=== PATIENT | female | born 1985 | race Caucasian/White ===

== ENCOUNTER → 2016-11-28 | Outpatient (CLI) | payer OTHER ==
[~2016-11-28] MED LIST: CHOL1TAB42; PRENTAB26 PO
[2016-11-28 12:48] LABS: GTGD 50 Grams
[2016-11-29 12:18] LABS: AFP CONCENTRATION 52.3 NG/ML; AFP MULTIPLE OF MEDIAN 1.57; AFPTS GESTATIONAL AGE 16.6 WEEKS; AFPTS INSULIN DEP DIABETIC? NO; AFPTS MATERNAL WT 162 LBS; ALPHA-FETOPROTEIN RACE CAUCASIAN=W; ESTRIOL MULTIPLE OF MEDIAN 0.94; HISTORY OF NTD NO; INHIBIN A 182 PG/ML; INHIBIN A MOM 1.13; REPEAT SAMPLE? NO; hCG MULTIPLE OF MEDIAN 1.55
== END | disposition home or self-care (01) ==
LOC: C.LAB1850 10:01
PROVIDERS: ATTEND Obstetrics & Gynecology
DX: Z34.91 Encounter for supervision of normal pregnancy, unspecified, first trimester (principal)

== ENCOUNTER → 2016-12-26 | Outpatient (CLI) | payer OTHER ==
[2016-12-26 11:50] LABS: THYROID STIMULATING HORMONE 0.745 uIu/ml (0.300-4.500)
== END | disposition home or self-care (01) ==
LOC: C.LAB1850 10:10
PROVIDERS: ATTEND Obstetrics & Gynecology
DX: Z34.82 Encounter for supervision of other normal pregnancy, second trimester (principal); R06.02 Shortness of breath

== ENCOUNTER → 2017-01-23 | Outpatient (CLI) | payer OTHER ==
[2017-01-23 11:56] LABS: URINE APPEARANCE CLEAR (CLEAR); URINE BILIRUBIN NEG (NEG); URINE COLOR DK YELLOW; URINE EPITHELIAL CELL AUTO >30 /lpf (0-5); URINE NITRITE NEG (NEG); URINE SPECIFIC GRAVITY 1.024 (1.000-1.030); UROBILINOGEN NEG (NEG)
[2017-01-23 12:08] LABS: MANUAL MICROSCOPIC REQUIRED? NO; REVIEW REQ? NO; SULFASALICYLIC ACID NEG (NEG)
== END | disposition home or self-care (01) ==
LOC: C.LABSPEC 11:20
PROVIDERS: ATTEND Obstetrics & Gynecology
DX: R39.9 Unspecified symptoms and signs involving the genitourinary system (principal)

== ENCOUNTER → 2017-02-06 | Outpatient (CLI) | payer OTHER ==
--- NOTE | 2017-02-06 13:08 | DIAGNOSTIC IMAGING REPORT ---
THYROID ULTRASOUND HISTORY: R94.6 Abnormal finding on thyroid function [id number] COMPARISON: None. FINDINGS: Right lobe: 5.1 x 1.9 x 1.6 cm. No nodules. Left lobe: 4.5 x 1.3 x 1.2 cm. There is an 8 x 5 x 5 mm hypoechoic nodule within the upper pole. This contains a few punctate internal calcifications. Isthmus: 6 mm in thickness. No nodules. IMPRESSION: An 8 x 5 x 5 mm hypoechoic nodule within the upper pole the left thyroid lobe which demonstrates a few punctate internal calcifications. Given the appearance of this nodule, ultrasound-guided fine-needle aspiration should be attempted. Electronically signed by: Jatinder Hayes M.D. 02/06/2017 1:07 PM Dictated Date/Time: 02/06/2017 1:05 PM
== END | disposition home or self-care (01) ==
LOC: C.ULTRBC 12:34
PROVIDERS: ATTEND Internal Medicine Endocrinology, Diabetes & Metabolism
DX: E04.1 Nontoxic single thyroid nodule (principal)

== ENCOUNTER → 2017-02-06 | Outpatient (CLI) | payer OTHER ==
[2017-02-06 11:47] LABS: BLOOD UREA NITROGEN 6 mg/dl (7-18); CREATININE 0.52 mg/dl (0.60-1.20); GLUCOSE 84 mg/dl (70-99)
[2017-02-06 11:48] LABS: ALT/SGPT 19 U/L (12-78); CALCIUM 8.7 mg/dl (8.5-10.1); CARBON DIOXIDE 23 mmol/L (21-32); CHLORIDE 105 mmol/L (98-107); POTASSIUM 3.6 mmol/L (3.5-5.1); SODIUM 138 mmol/L (136-145)
[2017-02-06 11:58] LABS: ALB/GLOB RATIO 0.7 (0.9-2); ALKALINE PHOSPHATASE 57 U/L (45-117); AST/SGOT 17 U/L (15-37); THYROID STIMULATING HORMONE 0.918 uIu/ml (0.300-4.500)
[2017-02-08 20:38] LABS: MICROSOMAL AB <1 IU/ML (<9); TSI <89 % baseline (<140)
[2017-02-11 14:31] LABS: T4 FREE BY EQU DIAL 0.6 ng/dL (0.8-2.7)
== END | disposition home or self-care (01) ==
LOC: C.LAB1850 10:23
PROVIDERS: ATTEND Internal Medicine Endocrinology, Diabetes & Metabolism
DX: R94.6 Abnormal results of thyroid function studies (principal); M79.1 Myalgia

== ENCOUNTER → 2017-02-20 | Outpatient (CLI) | payer OTHER ==
[~2017-02-20] MED LIST changes: +CLON0.5T3 PO; +CLR10 PO; +MULT-513 PO; +OXYC-57 PO; +SERT25TA PO
--- NOTE | 2017-02-20 12:10 | DIAGNOSTIC IMAGING REPORT ---
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 The risks the procedure were explained the patient and informed consent was obtained. The patient was prepped in a sterile fashion. There was anesthetized 1% lidocaine. Under ultrasound guidance, 3 passes into the patient's left lobe nodule were performed utilizing a 25-gauge needle. Initial pathologic review indicates satisfactory material for diagnosis. IMPRESSION: Successful ultrasound-guided fine-needle aspiration biopsy of an 8 x 5 x 5 mm left lobe thyroid nodule Electronically signed by: Dallas Jo M.D. 02/20/2017 12:08 PM Dictated Date/Time: 02/20/2017 12:07 PM
== END | disposition home or self-care (01) ==
LOC: C.ULTR 09:34
PROVIDERS: ATTEND Internal Medicine Endocrinology, Diabetes & Metabolism
DX: E04.1 Nontoxic single thyroid nodule (principal)

== ENCOUNTER → 2017-02-20 | Outpatient (CLI) | payer OTHER ==
[2017-02-20 13:52] LABS: HEMATOCRIT 31.3 % (37-47)
[2017-02-20 14:25] LABS: GTGD 50 Grams
== END | disposition home or self-care (01) ==
LOC: C.LAB1850 11:48
PROVIDERS: ATTEND Obstetrics & Gynecology
DX: Z34.82 Encounter for supervision of other normal pregnancy, second trimester (principal)

== ENCOUNTER → 2017-02-20 | Outpatient (CLI) | payer OTHER ==
[2017-02-20 11:41] LABS: URINE APPEARANCE CLEAR (CLEAR); URINE BILIRUBIN NEG (NEG); URINE COLOR YELLOW; URINE EPITHELIAL CELL AUTO >30 /lpf (0-5); URINE NITRITE NEG (NEG); URINE SPECIFIC GRAVITY 1.008 (1.000-1.030); UROBILINOGEN NEG (NEG)
[2017-02-20 11:46] LABS: MANUAL MICROSCOPIC REQUIRED? NO; REVIEW REQ? NO
== END | disposition home or self-care (01) ==
LOC: C.LABSPEC 11:20
PROVIDERS: ATTEND Obstetrics & Gynecology
DX: Z34.82 Encounter for supervision of other normal pregnancy, second trimester (principal)

== ENCOUNTER → 2017-03-06 | Outpatient (CLI) | payer OTHER | END | disposition home or self-care (01) | LOC: C.LAB1850 08:49 | PROVIDERS: ATTEND Internal Medicine Endocrinology, Diabetes & Metabolism | DX: O28.9 Unspecified abnormal findings on antenatal screening of mother (principal); E03.9 Hypothyroidism, unspecified; O99.280 Endocrine, nutritional and metabolic diseases complicating pregnancy, unspecified trimester ==

== ENCOUNTER → 2017-04-18 | Outpatient (CLI) | payer OTHER | LOC: C.LABSPEC 11:10 | PROVIDERS: ATTEND Obstetrics & Gynecology | DX: Z34.83 Encounter for supervision of other normal pregnancy, third trimester (principal) ==

== ENCOUNTER → 2017-04-24 | Outpatient (CLI) | payer OTHER ==
[2017-04-24 10:58] LABS: THYROID STIMULATING HORMONE 0.655 uIu/ml (0.300-4.500)
== END | disposition home or self-care (01) ==
LOC: C.LAB1850 09:04
PROVIDERS: ATTEND Internal Medicine Endocrinology, Diabetes & Metabolism
DX: E03.9 Hypothyroidism, unspecified (principal)

== ENCOUNTER 2017-05-17 06:51 | Inpatient (IN) | payer OTHER ==
[~2017-05-17] VITALS: Ht 157.5 cm; Wt 88.6 kg
[2017-05-17] MEDS ORDERED: LACTATED RINGER'S 1000ML 1,000 ML IV PRN (08:11)
[2017-05-17] MEDS ORDERED: PRENTAB26 PO (08:39)
[2017-05-17] MEDS ORDERED: CHOL1TAB42 (08:39)
[2017-05-17 08:40] VITALS: Ht 157.5 cm; Wt 88.6 kg
[2017-05-17 09:13] LABS: HEMATOCRIT 35.5 % (37-47); MEAN CELL VOLUME 91.3 fL (80-100); MEAN CORPUSCULAR HEMOGLOBIN 31.4 pg (25-34); MEAN CORPUSCULAR HGB CONC 34.4 g/dl (32-36); MEAN PLATELET VOLUME 9.9 fL (7.4-10.4); PLATELET COUNT 226 K/uL (130-400); RED BLOOD COUNT 3.89 M/uL (4.2-5.4); WHITE BLOOD COUNT 9.74 K/uL (4.8-10.8)
[2017-05-17] MEDS ORDERED: LACTATED RINGER'S 1000ML 500 ML IV PRN ×2 (10:20→19:17)
[2017-05-17] MEDS ORDERED: OXYTOCIN 30 UNITS/500ML NSS IV PRN ×2 (10:30→22:45)
[2017-05-17] MEDS: LACTATED RINGER'S 1000ML 1,000 ML IV SCH ×2 (10:44→21:45)
[2017-05-17 14:57] LABS: BENZODIAZEPINE, URINE NEG (NEG); COCAINE,URINE NEG (NEG); PHENCYCLIDINE, URINE NEG (NEG)
[2017-05-17] MEDS ORDERED: BUTORPHANOL TARTRATE 1 MG/ML VIAL IV PRN ×2 (16:15→18:00)
[2017-05-17] MEDS ORDERED: FENTANYL 2MCG/ML ROPIV 1.25MG/ML 100ML BAG EPI ONE (18:20)
[2017-05-17] MEDS ORDERED: FENTANYL CITRATE INJ 50 MCG/1 ML 2 ML VIAL ONE (18:20)
[2017-05-17] MEDS ORDERED: EpHEDrine SULFATE INJ 50 MG/ML AMP ONE (18:20)
[2017-05-17] MEDS ORDERED: BUPIVACAINE 0.25% 30 ML VIAL ONE (18:20)
[2017-05-17] MEDS ORDERED: NALOXONE HCL INJ 1 MG in SODIUM CHLORIDE 0.9% 1000ML 1,000 ML IV PRN (19:17)
[2017-05-17] MEDS ORDERED: EpHEDrine SULFATE INJ 50 MG/ML AMP IV PRN (19:30)
[2017-05-17] MEDS ORDERED: FENTANYL 2MCG/ML ROPIV 1.25MG/ML 100ML BAG EPI PRN (19:30)
[2017-05-17] MEDS ORDERED: ONDANSETRON INJ 2 MG/ML 2 ML VIAL IV PRN (19:30)
[2017-05-17] MEDS ORDERED: NALOXONE HCL INJ 0.4 MG/1 ML VIAL/CARP IV PRN (19:30)
[2017-05-17] MEDS ORDERED: NALBUPHINE HCL INJ 10 MG/ML AMP IV PRN (19:30)
[2017-05-17] MEDS ORDERED: DiphenhydrAMINE HCL 50 MG/ML VIAL IV PRN (19:30)
[2017-05-17] MEDS ORDERED: HYDROCORTISONE ACETATE 25 MG SUPP PR PRN (22:45)
[2017-05-17] MEDS ORDERED: BENZOCAINE 20% AER SPR 82.5 GM CAN EXT PRN (22:45)
[2017-05-17] MEDS ORDERED: SUPERCREAM 0.870 % 15GM JAR EXT PRN (22:45)
[2017-05-17] MEDS ORDERED: LANOLIN OINT EXT PRN ×2 (22:45)
--- NOTE | 2017-05-17 22:58 | Vaginal Delivery Summary ---
Vaginal Delivery Summary VAGINAL DELIVERY SUMMARY Patient progressed to complete with epidural anesthesia. She then began to push and spontaneously vaginally delivered a viable female from the cephalic presentation. The head delivered in RAHAT position, followed by anterior shoulder, then posterior shoulder, then body. No nuchal cord was noted. The baby was placed on mother's abdomen, where a spontaneous cry was heard. Delayed cord clamping was performed. A cord segment was retained. Cord blood was obtained. The uterus/vagina were cleared of all clots and debris. Pitocin was given. The uterus became firm. The cervix/vagina/perineum were inspected and no lacerations were noted. Sponge and instrument counts were correct x 2. The baby and mother recovered well in the room in stable and good condition.
[2017-05-17] MEDS: IBUPROFEN 600 MG TAB PO PRN (23:22)
[2017-05-18 01:20] VITALS: BP 132/75; PULSE 85; TEMP 36.8
[2017-05-18] MEDS: IBUPROFEN 600 MG TAB PO PRN ×4 (03:45→18:29)
[2017-05-18 04:00] VITALS: BP 109/69; PULSE 70; TEMP 36.7
[2017-05-18] MEDS: OXYCODONE/ACETAMINOPHEN 5-325 TAB PO PRN ×4 (06:02→21:53)
[2017-05-18 06:56] LABS: HEMATOCRIT 33.2 % (37-47)
[2017-05-18 07:30] VITALS: BP 132/77; PULSE 75; TEMP 36.9
--- NOTE | 2017-05-18 07:32 | Anesthesia Procedure Note ---
Anesthesia Epidural Removal Nt Date & Time May 18, 2017 at 07:32 Vital Signs Pain Intensity: 8.0 Vital Signs Past 12 Hours Date Time Temp Pulse Resp B/P (MAP) Pulse Ox O2 Delivery O2 Flow Rate FiO2 05/18/17 04:00 36.7 70 20 109/69 (82) 05/18/17 01:20 36.8 85 20 132/75 (94) Notes Mental Status: alert / awake / arousable, participated in evaluation Nausea / Vomiting: adequately controlled Pain: adequately controlled Airway Patency, RR, SpO2: stable & adequate BP & HR: stable & adequate Hydration State: stable & adequate Neuraxial Anesthesia: was administered, sensory block is resolved Anesthetic Complications: no major complications apparent, pt satisfied with anesthetic care Epidural: removed without complications, with tip intact
--- NOTE | 2017-05-18 08:23 | OB/GYN Progress Note ---
[employer] Progress Note Date of Service May 18, 2017. Subjective conversation w/ patient Ambulation: ambulating normally Voiding: no voiding problems Passing Gas: Yes Diet Tolerance: Regular Diet Lochia: Moderate Feeding Type: Bottle Feeding Notes: Pt was seen and examined at bedside. Is complaining of abdominal pain. Despite being , last delivery was nine years ago and cannot remember if she was in this much pain last time. Pt also reported one episode of severe reflux in the AM. Pt is usually on GERD medication at home. Pt received Ibuprofen and Percocet this AM as well. Pt eating at bedside, reports being very hungry. Pt also reports left ankle swelling. Plan of care was described to the pt and all questions were answered. Review of Systems Constitutional: No fever, No chills Respiratory: No cough, No shortness of breath Cardiac: No chest pain Abdomen: No pain, No nausea, No vomiting, No diarrhea, No constipation Female : No dysuria Objective Vital Signs Date Time Temp Pulse Resp B/P (MAP) Pulse Ox O2 Delivery O2 Flow Rate FiO2 05/18/17 07:30 Room Air 05/18/17 07:30 36.9 75 18 132/77 (95) Room Air 05/18/17 04:00 36.7 70 20 109/69 (82) 05/18/17 01:20 36.8 85 20 132/75 (94) Physical Exam General Appearance: WELL-APPEARING, WD/WN, NO APPARENT DISTRESS Respiratory/Chest: chest non-tender, lungs clear, normal breath sounds, no respiratory distress, no accessory muscle use Cardiovascular: regular rate, rhythm, no edema, no gallop, no JVD, no murmur Abdomen: normal bowel sounds, non tender, soft, no organomegaly, no pulsatile mass Fundus: Firm, Non-Tender, Relation to Umbilicus (1cm above the umbilicus) Extremities: normal range of motion, non-tender, normal inspection, no pedal edema, no calf tenderness Laboratory Results Last 24 Hours Test 05/17/17 08:29 05/17/17 09:30 05/18/17 06:43 White Blood Count 9.74 K/uL Red Blood Count 3.89 M/uL Hemoglobin 12.2 g/dL 11.8 g/dL Hematocrit 35.5 % 33.2 % Mean Corpuscular Volume 91.3 fL Mean Corpuscular Hemoglobin 31.4 pg Mean Corpuscular Hemoglobin Concent 34.4 g/dl RDW Standard Deviation 46.6 fL RDW Coefficient of Variation 14.1 % Platelet Count 226 K/uL Mean Platelet Volume 9.9 fL Urine Opiates Screen NEG Urine Methadone, Qualitative NEG Urine Barbiturates NEG Urine Phencyclidine (PCP) Level NEG Ur Amphetamine/Methamphetamine NEG MDMA (Ecstasy) Screen NEG Urine Benzodiazepines Screen NEG Urine Cocaine Metabolite NEG Urine Marijuana (THC) NEG Assessment and Plan Post- Day Number: 1 Continue Routine Care: 31F p/w scheduled induction. s/p vaginal delivery Day #1. - GBS negative, A+, Rubella Immune. - Vital signs reviewed and stable. - Control pain with pain medications. - Left leg swelling likely physiologic, no tenderness on palpation, wendy's sign negative. - Continue regular diet. - Encourage breast feeding. - Hemoglobin: 12.2-->11.8. Bleeding has improved, continue to monitor clinically. - Ranitidine 150mg BID and Pantoprazole 40mg QAM for heartburn. - Encourage ambulation. - Continue routine post care. - executive services administrator on board for discharge planning eval, please see their note. Resident Physician Supervision Note: I was present with Dr. Obregon during the history and exam. I discussed the case with the resident and agree with the findings and plan as documented in the note. Any exceptions or clarifications are listed here: [None] Documented By: Barbara John Resident Involvement: Resident Care Provided Care Provided: Adult Hospital Medicine
[2017-05-18] MEDS: DOCUSATE SODIUM 100 MG CAP PO SCH ×2 (09:07→19:27)
[2017-05-18] MEDS: PANTOprazole SOD 40 MG TAB PO SCH (09:07)
[2017-05-18] MEDS: RANITIDINE HCL 150 MG TAB PO SCH ×2 (09:08→21:53)
[2017-05-18 11:34] VITALS: BP 131/75; PULSE 76; TEMP 36.9; O2SAT 98
[2017-05-18 15:10] VITALS: BP 121/73; PULSE 68; TEMP 37.2; O2SAT 96
[2017-05-18 19:35] VITALS: BP 118/77; PULSE 71; TEMP 37.2
[2017-05-18] MEDS ORDERED: BISACODYL 5 MG TABEC PO SCH (20:00)
[2017-05-19 00:15] VITALS: BP 124/75; PULSE 69; TEMP 36.5
[2017-05-19] MEDS: IBUPROFEN 600 MG TAB PO PRN ×3 (03:45→18:11)
--- NOTE | 2017-05-19 07:05 | Progress Note ---
Subjective May 19, 2017. Subjective conversation w/ patient, physical exam, lab review Ambulation: ambulating normally Voiding: no voiding problems Diet Tolerance: Regular Diet Lochia: Small Objective Vital Signs Date Time Temp Pulse Resp B/P (MAP) Pulse Ox O2 Delivery O2 Flow Rate FiO2 05/19/17 00:15 36.5 69 18 124/75 (91) Room Air 05/19/17 00:15 Room Air 05/18/17 19:35 37.2 71 18 118/77 (91) Room Air 05/18/17 15:10 96 Room Air 05/18/17 15:10 37.2 68 18 121/73 (89) 96 Room Air 05/18/17 11:34 36.9 76 16 131/75 (93) 98 Room Air 05/18/17 07:30 Room Air 05/18/17 07:30 36.9 75 18 132/77 (95) Room Air Physical Exam General Appearance: WELL-APPEARING Abdomen: non tender Extremities: no calf tenderness Assessment and Plan Post- Day#: 2 Continue Routine Care: Having some issues with cervical prolapse. Reassurance.
[2017-05-19 08:25] VITALS: BP 139/90; PULSE 84; TEMP 36.9; O2SAT 97
[2017-05-19] MEDS: DOCUSATE SODIUM 100 MG CAP PO SCH ×2 (08:35→19:58)
[2017-05-19] MEDS: RANITIDINE HCL 150 MG TAB PO SCH ×2 (08:36→19:58)
[2017-05-19] MEDS: PANTOprazole SOD 40 MG TAB PO SCH (08:36)
[2017-05-19] MEDS: OXYCODONE/ACETAMINOPHEN 5-325 TAB PO PRN ×2 (08:37→21:55)
[2017-05-19 15:35] VITALS: BP 126/85; PULSE 71; TEMP 37.1
[2017-05-19 23:25] VITALS: BP 129/81; PULSE 65; TEMP 36.7; O2SAT 95
[2017-05-20] MEDS: IBUPROFEN 600 MG TAB PO PRN ×4 (01:40→18:08)
--- NOTE | 2017-05-20 08:27 | Progress Note ---
Subjective May 20, 2017. Subjective conversation w/ patient, physical exam Ambulation: ambulating normally Voiding: no voiding problems Feeding Type: Breast Feeding Objective Vital Signs Date Time Temp Pulse Resp B/P (MAP) Pulse Ox O2 Delivery O2 Flow Rate FiO2 05/19/17 23:25 Room Air 05/19/17 23:25 36.7 65 16 129/81 (97) 95 Room Air 05/19/17 15:35 Room Air 05/19/17 15:35 37.1 71 18 126/85 (99) Room Air Physical Exam General Appearance: WELL-APPEARING, NO APPARENT DISTRESS Fundus: Firm, Non-Tender Extremities: no calf tenderness Assessment and Plan Post- Day#: 2 Continue Routine Care: - routine care - doing well - instructions given - f/u in 6 weeks
[2017-05-20 08:28] VITALS: BP 131/84; PULSE 65; TEMP 36.6; O2SAT 97
--- NOTE | 2017-05-20 08:28 | Discharge Instructions ---
Discharge Instructions Date of Service May 20, 2017. Admission Reason for Admission: Induction Discharge Discharge Diagnosis / Problem: same Discharge Goals Goal(s): Routine recovery after delivery Medications Continue Dispensed Medications: supercream, dermaplast Activity Recommendations Activity Limitations: as noted below . Instructions / Follow-Up Instructions / Follow-Up ACTIVITY RECOMMENDATIONS: * Gradual return to full activity over the next 2-3 weeks. * No lifting - nothing heavier than baby over the next 2-3 weeks. * Do not engage in vigorous exercise, sexual activity or sports until cleared by your physician. * Do not drive or operate any motorized equipment until cleared by your physician. * You may shower/bathe daily. MEDICATIONS: For discomfort or pain, you may use Acetaminophen (Tylenol), Ibuprofen (Advil), or Naproxen (Aleve) following the package directions. For constipation you may use Colace following the package directions. BREAST CARE: If you are not breast feeding: * Wear a supportive bra 24 hours a day for one to two weeks. * Avoid stimulating your breasts and nipples as much as possible during the first few weeks after delivery. * When taking a shower, have the warm water hit your back, not breasts. * When your breasts feel full, apply ice packs. Usually three to four times a day helps ease the discomfort. * Take a mild pain medication (Tylenol / Motrin) when you are uncomfortable. If breast feeding: * Use breast milk to lubricate nipples. Lansinoh cream may be used for sore nipples. You do not need to remove cream prior to breast feeding. If using a different brand of cream, check the label for directions regarding removal of cream prior to nursing. * Wear a supportive bra. * If having problems with breasts or breast feeding, call a biztalk consultant or your health care provider. EPISIOTOMY CARE: After delivery, if you have an episiotomy (stitches), the following steps will ease discomfort and aid healing. * For the first 24 hours after delivery, place ice packs next to your episiotomy to help reduce swelling. * After the first 24 hour-period, sitz baths, either portable or in the tub, are suggested. A shower with a shower arm sprayed over the episiotomy may be comforting. * Lili care should be done after each voiding and bowel movement. Squirt warm water from a plastic bottle over the perineum (region of the body between the anus and urinary opening) and pat dry. * Use Dermoplast to ease discomfort. Shake container. [place] directly over the episiotomy. Place a Tucks on a clean sanitary pad next to your episiotomy. SPECIAL CARE INSTRUCTIONS: When you are discharged from the hospital, it is important for you to follow the instructions listed below: * During the first week at home, you should be able to care for yourself and your baby. In addition, the usual light household activities are encouraged. * Limit your activities to the way you feel. Do not try to clean the house or move furniture. Be sensible. * If you actively engage in sports and have done so up until the time of your delivery, you may resume these activities as soon as you feel able. This may take up to one month or even longer. Use good judgment. * Continue to take your vitamins for at least six weeks after the of your baby. * Your diet need not be limited unless you were on a special diet before your delivery. Breast-feeding mothers need around 2500 calories per day and at least 64-80 ounces of fluid per day (8 to 10 glasses). * You should eat foods from the four major food groups. Crash diets or fad diets are to be avoided. Eating lean meats, fresh fruits and vegetables, low-fat dairy products, high fiber foods and a regular exercise program, will help you get back to your pre- weight without putting your health at risk. * Constipation is sometimes a problem after delivery. Take a mild laxative as needed. If breast feeding, Milk of Magnesia is acceptable to use. You may use a suppository or Fleets enema if no episiotomy. * A daily shower or tub bath is suggested. Be sure to thoroughly and gently dry the perineum. * A bloody vaginal discharge will usually continue until around four weeks post . A small amount of bleeding may continue for as long as six weeks. Vaginal discharge changes from the bright red bleeding after delivery to pink then brownish and finally yellowish-pink before becoming white and disappearing. * Bleeding may increase with activity. Your first period may come in 4-8 weeks. If you are breast feeding, your period may be delayed even longer. * [place] (sex) can begin whenever both you and your partner feel comfortable and do not have any form of genital infection. It is recommended that you wait at least six weeks for internal and external healing to occur. If you have questions, please talk to your health care practitioner. A condom should be used to prevent infection and . * Foreplay, gentle intercourse and lubrication is very important the first several times to prevent pain. A water-based lubricant such as K-Y jelly or Astroglide may be used. * If you have RH negative blood and your baby is RH positive, you will receive RHOGAM by injection prior to discharge. The nurse will give you a card to keep with you that has the date and place that you received RHOGAM after delivery. * During your care, you had a Rubella screen done to check for the presence of rubella antibodies in your blood. If your test was negative, you will receive a Rubella vaccine prior to discharge. This vaccine may cause a fever, soreness at the injection site and flu-like symptoms. If these symptoms persist, notify your health care practitioner. is not advised for one month after a Rubella vaccine. * Verbalizes understanding of car seat law as reviewed with patient nursing. * Car Seat hand-out given and reviewed with patient by nursing. * Shaken baby information reviewed with patient by nursing. Call you doctor if: * Heavy bleeding (saturating several pads an hour) or passing clots the size of your fist. * A fever >101 degrees F (38.3 degrees C) on two occasions four hours apart and /or chills. * Unusual pain in the pelvic or vaginal areas. * "Baby Blues" lasting longer than two weeks. If you have any questions or concerns, call your health care practitioner at . FOLLOW UP VISIT: * Please call the office at to schedule a 6 week examination. It is important you keep this appointment. It is important for you to make arrangements for either yearly or twice yearly check-ups thereafter. Current Hospital Diet Patient's current hospital diet: Regular OB Diet Discharge Diet Recommended Diet: Regular OB Diet Pending Studies Studies pending at discharge: no Medical Emergencies . Who to Call and When: Medical Emergencies: If at any time you feel your situation is an emergency, please call 911 immediately. . Non-Emergent Contact Non-Emergency issues call your: Press Manager Call Non-Emergent contact if: temperature is above 100.5 . . "Provider Documentation" section prepared by Antonio Raymond. . VTE Core Measure Inpt VTE Proph given/why not?: Treatment not indicated
[2017-05-20] MEDS: DOCUSATE SODIUM 100 MG CAP PO SCH (10:59)
[2017-05-20] MEDS: RANITIDINE HCL 150 MG TAB PO SCH (10:59)
[2017-05-20] MEDS: PANTOprazole SOD 40 MG TAB PO SCH (11:00)
[2017-05-20 15:30] VITALS: BP 129/74; PULSE 62; TEMP 37.2; O2SAT 97
[2017-05-20 17:47] VITALS: BP_DIAS 74; PULSE 62; TEMP 37.2
== END 2017-05-20 18:20 | disposition home or self-care (01) | DRG 775 ==
LOC: C.LD 08:01 → C.MS4N 05-18 01:24 → C.OBG 05-18 13:11
PROVIDERS: ADMIT Obstetrics & Gynecology; ATTEND Obstetrics & Gynecology
PROC: 10E0XZZ Delivery of Products of Conception, External Approach (ICD-10-PCS; principal; 2017-05-17)
DX: O48.0 Post-term pregnancy (principal); O99.284 Endocrine, nutritional and metabolic diseases complicating childbirth; E03.9 Hypothyroidism, unspecified; Z3A.40 40 weeks gestation of pregnancy; Z37.0 Single live birth

== ENCOUNTER → 2017-07-07 | Outpatient (CLI) | payer OTHER ==
[~2017-07-07] MED LIST changes: -CLON0.5T3 PO; -CLR10 PO; -MULT-513 PO; -OXYC-57 PO; -SERT25TA PO
== END | disposition home or self-care (01) ==
LOC: C.PAPS 17:22
PROVIDERS: ATTEND Obstetrics & Gynecology
DX: Z39.2 Encounter for routine postpartum follow-up (principal); Z11.51 Encounter for screening for human papillomavirus (HPV)

== ENCOUNTER → 2017-08-14 | Outpatient (CLI) | payer OTHER | END | disposition home or self-care (01) | LOC: C.LABSPEC 14:10 → C.PATHSPEC 14:13 | PROVIDERS: ATTEND Obstetrics & Gynecology | DX: R87.612 Low grade squamous intraepithelial lesion on cytologic smear of cervix (LGSIL) (principal); N87.9 Dysplasia of cervix uteri, unspecified ==

== ENCOUNTER → 2017-09-13 | Outpatient (CLI) | payer OTHER ==
[~2017-09-13] MED LIST changes: +CLON0.5T3 PO; +CLR10 PO; +MULT-513 PO; -PRENTAB26 PO; +SERT25TA PO
[2017-09-13 14:42] LABS: MEAN CELL VOLUME 88.8 fL (80-100); MEAN CORPUSCULAR HEMOGLOBIN 31.7 pg (25-34); MEAN CORPUSCULAR HGB CONC 35.6 g/dl (32-36); MEAN PLATELET VOLUME 9.3 fL (7.4-10.4); PLATELET COUNT 280 K/uL (130-400); RED BLOOD COUNT 4.39 M/uL (4.2-5.4); WHITE BLOOD COUNT 7.46 K/uL (4.8-10.8)
== END | disposition home or self-care (01) ==
LOC: C.LAB1850 12:40
PROVIDERS: ATTEND Obstetrics & Gynecology
DX: Z01.812 Encounter for preprocedural laboratory examination (principal)

== ENCOUNTER → 2017-10-04 | Day surgery (SDC) | payer OTHER ==
[2017-09-11 14:26] VITALS: Ht 157.5 cm; Wt 80.5 kg
[~2017-10-04] VITALS: Ht 157.5 cm; Wt 80.5 kg
[~2017-10-04] MED LIST changes: +ATROPINE SULFATE 0.1 MG/ML 5ML SYR IV PRN; +BUPIVACAINE 0.25% 30 ML VIAL ONE; +DEXAMETHASONE SOD INJ 4 MG/ML VIAL ONE; +EpHEDrine SULFATE INJ 50 MG/ML AMP IV PRN; +FENTANYL CITRATE INJ 50 MCG/1 ML 2 ML VIAL ONE; +FLUMAZENIL 0.1 MG/1 ML 10 ML VIAL IV PRN; +GLYCOPYRROLATE INJ 0.2 MG/ML VIAL ONE; +HYDROmorphone INJ 1 MG/ML SYR IV PRN; +KETOROLAC TROMETHAMINE 30 MG/ML VIAL IV. PRN; +KETOROLAC TROMETHAMINE 30 MG/ML VIAL ONE; +LIDOCAINE HCL 2% 2 ML VIAL (20MG/ML) ONE; +MIDAZOLAM HCL 1 MG/ML 2ML VIAL ONE; +NALOXONE HCL 0.4 MG/1 ML VIAL/CARP IV PRN; +NEOSTIGMINE METHYLSULFATE 5 MG/5 ML SYR ONE; +ONDANSETRON INJ 2 MG/ML 2 ML VIAL IV PRN; +ONDANSETRON INJ 2 MG/ML 2 ML VIAL ONE; +OXYC-57 PO; +OXYCODONE/ACETAMINOPHEN 5-325 TAB PO PRN; +PROMETHAZINE HCL INJ 12.5 MG in SODIUM CHLORIDE 0.9% 50ML 50 ML IV PRN; +PROMETHAZINE HCL INJ 25 MG in SODIUM CHLORIDE 0.9% 50ML 50 ML IV PRN; +PROPOFOL IV EMULSION 10 MG/ML 20 ML VIAL IV ONE; +ROCURONIUM BROMIDE 10 MG/ML 5 ML VIAL IV ONE; +SILVER NITR/POTASSIUM NITRATE APPLICATOR ONE; +SODIUM CHLORIDE 0.9% 1000ML 1,000 ML IV SCH
[2017-10-04] MEDS: LACTATED RINGER'S 1000ML 1,000 ML IV SCH ×2 (11:38→14:14)
--- NOTE | 2017-10-04 12:22 | History & Physical Bridge - SC ---
H&P Re-Evaluation Bridge Note: I have examined the patient, reviewed the History & Physical and in the interval since the performance of the History & Physical I have noted the following changes of clinical significance: No changes noted
--- NOTE | 2017-10-04 13:42 | [facility] Post Operative Brief Note ---
Immediate Operative Summary Operative Date Oct 04, 2017. Pre-Operative Diagnosis Desires permanent sterilization Post-Operative Diagnosis Same Procedure(s) Performed Laparoscopic Tubal Sterilization with Filshie clips Surgeon Dr. John Instantizer Operator Surgeon(s) None Estimated Blood Loss 3ML Findings Normal appearing uterus, tubes, ovaries. Bowel appears normal. Appendix not seen. Liver edge and gallbladder appear wnl. Specimens None Drains Hernández, clear yellow. Anesthesia general Complication(s) None Disposition Recovery Room / PACU
--- NOTE | 2017-10-04 13:44 | Discharge Instructions-SurgCtr ---
Discharge Instructions Date of Service Oct 04, 2017. Visit Reason for Visit: Encounter For Contraceptive Mgmt Discharge Discharge Diagnosis / Problem: desire for sterilization Discharge Goals Goal(s): Therapeutic intervention Activity Recommendations Activity Limitations: per Instructions/Follow-up section Anesthesia . Post Anesthesia Instructions: If you have had General Anesthesia or IV Sedation: * Do not drive today. * Resume driving when surgeon permits. * Do not make important decisions or sign legal documents today. * Call surgeon for: 1. Temperature elevations greater than 101 degrees F. 2. Uncontrollable pain. 3. Excessive bleeding. 4. Persistent nausea and vomiting. 5. Medication intolerance (nausea, vomiting or rash). * For nausea and vomiting use only clear liquids such as: tea, soda, bouillon until nausea subsides, then gradually increase diet as tolerated. * If you have any concerns or questions, call your surgeon's office. If physician is unavailable and it is an emergency, call 911 or go to the nearest emergency room. . Instructions / Follow-Up Instructions / Follow-Up ACTIVITY RECOMMENDATIONS: * Rest the first 2-3 days. You should be back to your normal activity levels by day 3. * No heavy lifting for 2 weeks. * No intercourse, tampons or douching for 1-2 weeks. * You may shower the next day. * Do not drive anytime that you are taking narcotic pain medicines. RETURN TO SCHOOL/WORK: * May return to school or work after 2-3 days. DIET: Nausea may occur in the immediate post-operative period. If so, take clear liquids such as tea, bouillon, apple juice until all nausea has subsided, then resume usual diet. MEDICATIONS: Resume previous medications unless instructed otherwise by your surgeon. Ibuprofen 200mg 2-3 tablets every 4-6 hours as needed -- OR -- Aleve 2 tablets every 8-12 hours as needed for post-operative discomfort Medications are over the counter. Tylenol may be used if above medications are contraindicated or not preferred. Medication should be taken with food or milk. Do not take on an empty stomach. SPECIAL CARE INSTRUCTIONS: * Check temperature twice daily for one week. report any elevation over 101 degrees. * You may experience some vagina spotting and/or bleeding. This is normal for 1 -2 weeks and should not be heavier than a normal period. If it is unusual in amount, call your physician. * Post-operative discomfort may consist of a sore throat, a "bloated" feeling and pain in the shoulders. these are normal symptoms, which usually only last for 2-3 days. * Remove band-aids tomorrow and shower. There is no need to replace band-aids unless there is drainage or discomfort. FOLLOW UP VISIT: Call your doctor's office for a post-operative 2 week visit if not already scheduled. Diet Recommendations Home Diet: resume previous diet Procedures Procedures Performed: Laparoscopic Tubal Sterilization with Filshie clips Pending Studies Studies pending at discharge: no Medical Emergencies . Who to Call and When: Medical Emergencies: If at any time you feel your situation is an emergency, please call 911 immediately. . Non-Emergent Contact Non-Emergency issues call your: Primary Care Provider, Hospital Internship . . "Provider Documentation" section prepared by Barbara John. . [place] Drug Monitoring Program Search Results: patient reviewed within database
[2017-10-04 14:29] VITALS: TEMP 36.5
[2017-10-04 15:02] VITALS: BP 123/74; PULSE 86; O2SAT 97
--- NOTE | 2017-10-04 15:11 | Anesthesia Progress Nt - [facility] ---
Anesthesia Post Op Note Date & Time Oct 04, 2017 at 15:11 Vital Signs Pain Intensity: 6 Vital Signs Past 12 Hours Date Time Temp Pulse Resp B/P (MAP) Pulse Ox O2 Delivery O2 Flow Rate FiO2 10/04/17 15:02 86 16 123/74 (90) 97 Room Air 10/04/17 14:29 36.5 75 16 118/73 (88) 98 Room Air 10/04/17 14:05 138/73 10/04/17 14:04 36.6 89 16 138/78 95 Room Air 10/04/17 14:02 85 16 95 10/04/17 14:02 85 16 10/04/17 14:00 134/80 10/04/17 13:57 88 17 97 10/04/17 13:57 87 17 10/04/17 13:55 127/81 10/04/17 13:52 73 18 100 10/04/17 13:52 73 18 10/04/17 13:51 135/81 10/04/17 13:47 80 15 100 10/04/17 13:47 82 15 10/04/17 13:45 117/60 10/04/17 13:42 79 15 100 10/04/17 13:42 78 15 10/04/17 13:41 125/68 10/04/17 13:37 76 18 100 10/04/17 13:37 76 18 10/04/17 13:35 125/62 10/04/17 13:32 93 16 100 10/04/17 13:32 93 16 10/04/17 13:30 137/86 10/04/17 13:27 104 135/89 95 10/04/17 13:27 104 10/04/17 13:27 37.8 104 16 135/89 99 Mask 6 10/04/17 11:24 36.8 80 16 136/86 (103) 97 Room Air Notes Mental Status: alert / awake / arousable, participated in evaluation Pt Amnestic to Procedure: Yes Nausea / Vomiting: adequately controlled Pain: adequately controlled Airway Patency, RR, SpO2: stable & adequate BP & HR: stable & adequate Hydration State: stable & adequate Anesthetic Complications: no major complications apparent
--- NOTE | 2017-10-04 15:41 | OPERATIVE REPORT ---
DATE OF OPERATION: 10/04/2017 SURGEON: Barbara John DO. PREOPERATIVE DIAGNOSIS: Desires permanent sterilization. POSTOPERATIVE DIAGNOSIS: Desires permanent sterilization. PROCEDURE PERFORMED: Laparoscopic tubal sterilization with Filshie clips. [employer]: None. ESTIMATED BLOOD LOSS: 3 mL. FINDINGS: Normal-appearing uterus, tubes, and ovaries. Bowel appears normal. Appendix not seen. Liver edge and gallbladder appear normal. SPECIMENS: None. DRAINS: Hernández, clear yellow. ANESTHESIA: General. COMPLICATIONS: None. DISPOSITION: Stable and good to recovery area. INDICATIONS FOR PROCEDURE: The patient is a 32-year-old, G4, P3-0-1-3, who delivered vaginally most recently, 05/17/2017, desiring permanent surgical sterilization. She has 3 children and has completed childbearing. She is considering medical and long-acting reversible contraceptive options and desires permanent sterilization. DESCRIPTION OF PROCEDURE: The patient was seen in the preoperative holding area, where risks, benefits, and alternatives to surgery were reviewed. She elected to proceed with tubal sterilization. She had previously signed informed consent under no duress in the office. She was taken to the operating room, where general anesthesia was administered. She was prepared and draped in the usual sterile fashion with feet in Yellofin stirrups in the dorsal lithotomy position. A time-out was confirmed. A Hernández catheter was introduced into the bladder. A weighted speculum was placed in the vagina. The cervix was visualized and its anterior lip was grasped with a single-tooth tenaculum. The acorn uterine manipulator was placed, and attention was then turned to the abdomen and gloves were changed. A vertical infraumbilical incision was made with a scalpel and using the open Arlyn technique, this incision was cut down to the level of the peritoneum. The peritoneum was entered and the trocar was placed. The camera was inserted to ensure intra-abdominal placement. The gas was turned on high flow and the abdomen was insufflated with CO2 gas to 15 mmHg. The patient was placed in Trendelenburg position. The abdomen was viewed with the camera. Pictures were taken and the above-noted findings were seen. A suprapubic trocar site was placed under direct visualization. A blunt-tip probe was used to sweep the bowel out of the way and visualize the bilateral adnexae and fallopian tubes. The Filshie clip applicator was inserted and the left fallopian tube was grasped approximately 2 cm from the cornua, and the Filshie clip was placed with visualization of the posterior clip through the mesosalpinx ensuring the entire tube was clipped. Confirmation of the fallopian tube anatomy was made by visualization of the tubal fimbria. In a similar fashion, the right tube was clipped. Pictures were taken. All trocars were removed under direct visualization. The patient was flattened out from Trendelenburg and the infraumbilical fascia was reapproximated using 0 Vicryl as well as the suprapubic. Subcuticular tissue was reapproximated and both incisions were reapproximated using 0 Vicryl in a running stitch. The patient tolerated the procedure well. She was taken to the postoperative recovery area in stable and good condition. I attest to the content of the Intraoperative Record and any orders documented therein. Any exception s are noted below.
== END | disposition home or self-care (01) ==
LOC: X.SURG 11:02
PROVIDERS: ATTEND Obstetrics & Gynecology
DX: Z30.2 Encounter for sterilization (principal); E03.9 Hypothyroidism, unspecified; E55.9 Vitamin D deficiency, unspecified; R00.2 Palpitations; Z87.891 Personal history of nicotine dependence; Z79.899 Other long term (current) drug therapy